=== PATIENT | male | born 1980 | race Hispanic/Latino ===

== ENCOUNTER 2024-10-28 11:57 | Emergency (ER) | payer SELFPAY ==
[2024-10-28 12:03] VITALS: BP 124/72
[2024-10-28 13:11] VITALS: BMI 27.9
[2024-10-28 13:14] VITALS: BP 117/68
--- NOTE | 2024-10-28 13:42 | ED.GENMED ---
History of Present Illness
General
Chief Complaint: Eye Problems
Source: patient
Time Seen by Provider: 10/28/24 13:28
History of Present Illness
History of Present Illness:
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 Patient notes over the last 4 days he has had a
foreign body sensation, redness and increased tearing to the right eye. He states no contact with chemical substances that could have gotten into his eye. Denies any headaches, blurred or double vision but does admit to photophobia.
Past History
Past History
ED Past Medical History: None
ED Past Surgical History: None
Social History
Tobacco: Non-smoker
Alcohol: None
Drug: None
Personal: Single
Living: with family
Review of Systems
Review of Systems
All Other Systems: ROS reviewed and negative except as documented in HPI and ROS
Phy Exam
Physical Exam
Physical Exam:
GENERAL: Alert , in no apparent distress, wearing sunglasses, uncomfortable when sunglasses were removed and looking in the light
EYE: conjunctiva significantly injected to the right with increased tearing. Pupils 4 mm bilateral, EOMI, no foreign body visualized, lids everted which do not show any foreign body or stye
FLUORESCEIN STAIN: Small uptake measuring about 1 mm at the 11 o'clock position of the iris, no foreign body
Slit-lamp exam: Uptake again seen, no foreign body, no hyphema
Visual acuity: Right eye 20/50, left eye 20/30, both eyes 20/20
Head: Normocephalic atraumatic
NECK: Supple,
ENT: mmm.
LUNGS: no acute respiratory distress
NEUROLOGICAL: Alert and oriented
SKIN: Warm and dry, skin intact.
MUSCULOSKELETAL: well perfused.
PSYCH: Normal and appropriate interaction.
Scores
Heart Failure Risk
Heart Failure Risk Score: Not Applicable
Heart Score for Chest Pain Patients
STEMI patient?: Not applicable
Withdrawal Assessment of Alcohol
Withdrawal Assessment Completed?: Not applicable
Course
Orders/Labs/Results
Orders:
Orders
10/28/24 13:32
Tetracaine HCl [Tetracaine 0.5% Ophthalmic Solution] 2 drop .ROUTE .[facility]
Vital Signs
Initial and Last Documented VS:
Initial Vital Signs
Temp Pulse Resp BP Pulse Ox
97.8 F 72 16 124/72 98
10/28/24 12:03 10/28/24 12:03 10/28/24 12:03 10/28/24 12:03 10/28/24 12:03
Last Documented Vital Signs
Temp Pulse Resp BP Pulse Ox
97.8 F 60 16 117/68 97
10/28/24 12:03 10/28/24 13:14 10/28/24 13:14 10/28/24 13:14 10/28/24 13:44
MDM/Problems Addressed
Differential Diagnosis Includes:
Corneal abrasion
Foreign body
Iritis
Glaucoma
Conjunctivitis
Stye
Chemical exposure
MDM/Problems Addressed:
44-year-old male presenting to the ER for evaluation of right eye pain, erythema, photophobia and increased tearing. Questionably got something in his eye while at work 4 days ago. Fluorescein stain did show a very small uptake making suspicion
for corneal abrasion most likely. Given degree of symptoms patient will likely need ophthalmology follow-up. Information for the [facility] was provided. Ocuflox antibiotic drop sent to pharmacy. Patient did note significant relief of
pain following instillation of tetracaine.
*Pulse Oximetry
SaO2: 97
Oxygen Mode of Delivery: Room air
Patient hypoxic: no
*Critical Care Note
Total Time (30-74mins, 75-104mins- exclusive of procedures): Not Applicable
ED Attending Note
-
Portions of this chart may have been created with voice recognition software.� Occasional wrong word or��sound alike� substitutions may have occurred due to the inherent limitations of voice recognition software.
Discharge Plan
Departure
Patient Disposition: Home (Routine Discharge)
Date of Disposition: 10/28/24
Time of Disposition: 13:54
Patient with high blood pressure during this ER visit?: No
Discharge Problem:
Injury of conjunctiva and corneal abrasion of right eye w/o FB
Instructions: Corneal Abrasion (DC)
Prescriptions:
New
ofloxacin [Ocuflox] 0.3 % drops
2 drp ophthalmic (eye) QID 5 Days Qty: 5 0RF
Referrals:
[facility] [Outside]
Referral Note: Please call for appointment
Interventions
Interventions:
*Risk Screen - Suicide Last Done: 10/28/24 12:03
*General Assessment Last Done: 10/28/24 13:11
*Neglect/Abuse Screening Last Done: 10/28/24 12:03
*ED- Fall Risk Assessment Last Done: 10/28/24 13:11
*ED COVID-19 Vaccine History Last Done: 10/28/24 13:11
*Nursing Disposition Last Done: 10/28/24 14:10
Discharge Date and Time
Discharge Date/Time: 10/28/24 14:10
Print Language: UKRAINIAN
== END 2024-10-28 14:10 | disposition home or self-care (01) ==
LOC: EMR 11:57
PROVIDERS: EMERGENCY PHYSICIAN Emergency Medicine
DX: S05.01XA Injury of conjunctiva and corneal abrasion without foreign body, right eye, initial encounter (principal); X58.XXXA Exposure to other specified factors, initial encounter
CPT/HCPCS: 99283